=== PATIENT | female | born 2000 | race Caucasian/White ===

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

== ENCOUNTER → 2019-01-06 | Outpatient (CLI) | payer MEDICAID ==
--- NOTE | 2019-01-06 12:37 | Diagnostic Imaging Report ---
INDICATION: Followup heart. TECHNIQUE: Multiple real-time grayscale images were obtained over the gravid uterus. COMPARISON: 12/02/2018. FINDINGS: There is a single live fetus in a cephalic presentation. heart rate was recorded at 156 beats per minute. Placenta is anterior. Amniotic fluid volume is normal. There continues to be somewhat limited evaluation of the four-chamber heart on this study. No other abnormalities are identified. IMPRESSION: Continued limited four-chamber heart view. Continued additional followup is recommended. Dictated by: Dictated on workstation # [id number]
== END ==
LOC: RAD 09:36
PROVIDERS: ATTEND Family Medicine
DX: Z36.89 Encounter for other specified antenatal screening (principal); Z3A.00 Weeks of gestation of pregnancy not specified
CPT/HCPCS: 76816

== ENCOUNTER → 2019-01-24 | Outpatient (CLI) | payer MEDICAID ==
--- NOTE | 2019-01-24 15:44 | Diagnostic Imaging Report ---
INDICATION: Followup four-chamber heart view. TECHNIQUE: Multiple real-time grayscale images were obtained over the gravid uterus. COMPARISON: 01/06/2019. FINDINGS: There is a single live fetus in a cephalic presentation. heart rate was recorded at 140 beats per minute. Placenta is anterior. Amniotic fluid volume is normal. Four-chamber heart view is visualized today and appears unremarkable. IMPRESSION: Unremarkable limited obstetrical ultrasound. Four-chamber heart view was well visualized today. Dictated by: Dictated on workstation # [id number]
== END ==
LOC: RAD 10:56
PROVIDERS: ATTEND Family Medicine
DX: Z34.90 Encounter for supervision of normal pregnancy, unspecified, unspecified trimester (principal); Z3A.00 Weeks of gestation of pregnancy not specified
CPT/HCPCS: 76816

== ENCOUNTER 2019-03-13 22:36 | Emergency (ER) | payer MEDICAID ==
[~2019-03-13] VITALS: Ht 157.5 cm; Wt 92.6 kg
[2019-03-13] MEDS ORDERED: ACETAMINOPHEN 500 MG TAB (TYLENOL) PO STA (23:09)
[2019-03-13] MEDS ORDERED: NS IV 1000 ML 1,000 ML IV ONE (23:09)
[2019-03-13 23:22] LABS: BASOPHILS % (AUTO) 0 % (0-10); EOSINOPHILS # (AUTO) 0.1 10^3/uL (0.0-0.3); EOSINOPHILS % (AUTO) 1 % (0-10); HEMATOCRIT 36 % (35-52); HEMOGLOBIN 12.3 G/DL (11.5-16.0); LYMPHOCYTES # (AUTO) 2.7 X 10^3 (1.0-4.0); LYMPHOCYTES % (AUTO) 18 % (12-44); MEAN CORPUSCULAR HEMOGLOBIN 29 PG (25-34); MEAN CORPUSCULAR HGB CONC 34 G/DL (32-36); MEAN CORPUSCULAR VOLUME 85 FL (80-99); MEAN PLATELET VOLUME 11.5 FL (7.4-10.4); MONOCYTES # (AUTO) 1.3 X 10^3 (0.0-1.0); MONOCYTES % (AUTO) 9 % (0-12); NEUTROPHILS # (AUTO) 10.7 X 10^3 (1.8-7.8); NEUTROPHILS % (AUTO) 73 % (42-75); PLATELET COUNT 168 10^3/uL (130-400); RED CELL DISTRIBUTION WIDTH 13.5 % (10.0-14.5); WHITE BLOOD COUNT 14.7 10^3/uL (4.3-11.0)
--- NOTE | 2019-03-13 23:28 | ED Abdominal Pain ---
General Chief Complaint: Abdominal/GI Problems Stated Complaint: ABD/BACK/CHEST PAIN Nursing Triage Note: pt states sudden onset of upper abd pain, bilat lower back pain and chest pain with intermittent soa. pt is 33 weeks and has had a known gb stone at 23 weeks. pt denies burning or pain with urination. pt denies vaginal discharge and vision changes. pt is Source of Information: Patient Exam Limitations: No Limitations History of Present Illness Date Seen by Provider: Mar 13, 2019 Time Seen by Provider: 23:01 Initial Comments Here with report of right upper quadrant pain that lasted for a few hours and started at hour or 2 after eating a ham and she sounded much. Does have known gallstones. She is 33 weeks . She was short of breath with the pain. This is ultimately what caused her to come to the emergency department. Overall her pain is much improved currently without any therapy other than time. Timing/Duration: 1-3 Hours Severity/Quality: Moderate, Aching Location: RUQ Radiation: Back Activities at Onset: Rest Modifying Factors: Worsens With Eating Associated Symptoms: Back Pain; No Chest Pain, No Fever/Chills, No Nausea/Vomiting; Shortness of Air; No Weakness Allergies and Home Medications Allergies Coded Allergies: amoxicillin (Unverified Allergy, Mild, RASH, 03/03/16) Penicillins (Verified Allergy, Unknown, unknown, 11/26/18) Home Medications Albuterol Sulfate 1 Puff Puff, 2 PUFF IH Q4H PRN for SHORTNESS OF BREATH 1 PUFF = 90 MCG Prescribed by: DANILO CARL on 08/18/17 0914 Patient Home Medication List Home Medication List Reviewed: Yes Review of Systems Review of Systems Constitutional: see HPI; No chills, No fever Respiratory: See HPI Cardiovascular: See HPI Gastrointestinal: Denies Diarrhea, Denies Nausea, Denies Vomiting Genitourinary: No Symptoms Reported Musculoskeletal: see HPI Past Fpttdxw-Cqoize-Jetyfi Hx Past Med/Social Hx: Reviewed Nursing Past Med/Soc Hx Patient Social History Alcohol Use: Denies Use Recreational Drug Use: No Smoking Status: Never a Smoker Recent Foreign Travel: No Contact w/Someone Who Travel: No Recent Hopitalizations: No Ebola Symptoms: Denies Symptoms Listed Physical Abuse: No Sexual Abuse: No Mistreated: No Fear: No Immunizations Up To Date Tetanus Booster (TDap): Less than 5yrs PED Vaccines UTD: Yes Seasonal Allergies Seasonal Allergies: No Past Medical History Surgeries: Yes (DENTAL ) Appendectomy Respiratory: No Cardiac: No Neurological: No Expected Date of Delivery: May 02, 2019 Hx : 1 Reproductive Disorders: Yes (? PCOS ?) Female Reproductive Disorders: Ovarian Cyst Genitourinary: Yes UTI-Chronic Gastrointestinal: No Musculoskeletal: No Endocrine: Yes (HYPERGLYCEMIC SINCE 1ST GRADE ON OCCASION --DOES NOT TAKE MEDICINE) Cancer: No Psychosocial: No Integumentary: No Blood Disorders: No Family Medical History Reviewed Nursing Family Hx No Pertinent Family Hx Physical Exam Vital Signs Vital Signs - First Documented 03/13/19 22:54 Temp 97.8 Pulse 98 Resp 18 B/P (MAP) 127/79 Pulse Ox 99 Capillary Refill : Height/Weight/BMI Height: 5'2.00" Weight: 204lbs. 4.0oz. 92.450285wz; 35.15 BMI Method:Stated General Appearance: WD/WN, no apparent distress Neck: full range of motion, supple Respiratory: lungs clear, normal breath sounds Cardiovascular: regular rate, rhythm, no murmur Gastrointestinal: non tender, soft, other (mild but minimal right upper quadrant abdominal pain. [place] uterus above the umbilicus) Extremities: non-tender, normal inspection, no pedal edema Back: normal inspection, no CVA tenderness, no vertebral tenderness Neurologic/Psychiatric: alert, oriented x 3 Skin: normal color, warm/dry Progress/Results/Core Measures Results/Orders Lab Results Laboratory Tests Test 03/13/19 23:00 Range/Units White Blood Count 14.7 H 4.3-11.0 10^3/uL Red Blood Count 4.26 L 4.35-5.85 10^6/uL Hemoglobin 12.3 11.5-16.0 G/DL Hematocrit 36 35-52 % Mean Corpuscular Volume 85 80-99 FL Mean Corpuscular Hemoglobin 29 25-34 PG Mean Corpuscular Hemoglobin Concent 34 32-36 G/DL Red Cell Distribution Width 13.5 10.0-14.5 % Platelet Count 168 130-400 10^3/uL Mean Platelet Volume 11.5 H 7.4-10.4 FL Neutrophils (%) (Auto) 73 42-75 % Lymphocytes (%) (Auto) 18 12-44 % Monocytes (%) (Auto) 9 0-12 % Eosinophils (%) (Auto) 1 0-10 % Basophils (%) (Auto) 0 0-10 % Neutrophils # (Auto) 10.7 H 1.8-7.8 X 10^3 Lymphocytes # (Auto) 2.7 1.0-4.0 X 10^3 Monocytes # (Auto) 1.3 H 0.0-1.0 X 10^3 Eosinophils # (Auto) 0.1 0.0-0.3 10^3/uL Basophils # (Auto) 0.0 0.0-0.1 10^3/uL Neutrophils % (Manual) 74 % Lymphocytes % (Manual) 19 % Monocytes % (Manual) 5 % Eosinophils % (Manual) 2 % Sodium Level 138 135-145 MMOL/L Potassium Level 3.5 L 3.6-5.0 MMOL/L Chloride Level 105 98-107 MMOL/L Carbon Dioxide Level 22 21-32 MMOL/L Anion Gap 11 5-14 MMOL/L Blood Urea Nitrogen 4 L 7-18 MG/DL Creatinine 0.58 L 0.60-1.30 MG/DL Estimat Glomerular Filtration Rate > 60 BUN/Creatinine Ratio 7 Glucose Level 87 70-105 MG/DL Calcium Level 9.2 8.5-10.1 MG/DL Corrected Calcium 9.7 8.5-10.1 MG/DL Total Bilirubin 0.4 0.1-1.0 MG/DL Aspartate Amino Transf (AST/SGOT) 33 5-34 U/L Alanine Aminotransferase (ALT/SGPT) 68 H 0-55 U/L Alkaline Phosphatase 254 H 40-136 U/L Total Protein 6.6 6.4-8.2 GM/DL Albumin 3.4 3.2-4.5 GM/DL My Orders Orders - CAMI GUY MD Cbc With Automated Diff (03/13/19 23:09) Comprehensive Metabolic Panel (03/13/19 23:09) Ed Iv/Invasive Line Start (03/13/19 23:09) Ns Iv 1000 Ml (Sodium Chloride 0.9%) (03/13/19 23:09) Acetaminophen Tablet (Tylenol Tablet) (03/13/19 23:09) Manual Differential (03/13/19 23:00) Ondansetron Injection (Zofran Injectio (03/14/19 00:00) Lidocaine 2% Viscous 15 Ml (Xylocaine Vi (03/14/19 00:00) Antacid Suspension (Mylanta Suspension (03/14/19 00:00) Ondansetron Injection (Zofran Injectio (03/13/19 23:44) Medications Given in ED Current Medications Medications Dose Ordered Sig/Apryl Route Start Time Stop Time Status Last Admin Dose Admin Al Hydrox/Mg Hydrox/Simethicone 30 ml ONCE ONCE PO 03/14/19 00:00 03/14/19 00:01 DC 03/14/19 00:09 30 ML Lidocaine HCl 15 ml ONCE ONCE PO 03/14/19 00:00 03/14/19 00:01 DC 03/14/19 00:10 15 ML Ondansetron HCl 4 mg ONCE ONCE IVP 03/14/19 00:00 03/14/19 00:01 DC 03/13/19 23:50 4 MG Sodium Chloride 1,000 ml @ 0 mls/hr Q0M ONCE IV 03/13/19 23:09 03/13/19 23:14 DC 03/13/19 23:21 999 MLS/HR Vital Signs/I&O 03/13/19 22:54 Temp 97.8 Pulse 98 Resp 18 B/P (MAP) 127/79 Pulse Ox 99 Progress Progress Note : Progress Note Seen and evaluated. IV, labs, normal saline 1 L bolus and acetaminophen 1 g by mouth. heart tones 138 by Doppler. Bedside ultrasound performed. Gallstone still noted. Patient did have episode of vomiting and Zofran 4 mg IV given. GI cocktail given. She had near complete relief of pain after the GI cocktail. This does seem to be more reflux related and she has admitted that she has to drink milk all the time to get her stomach acid down. We did discuss potentially Pepcid/famotidine for her upset stomach but I have instructed her to follow-up with her doctor regarding that. I will send a copy of the chart to Dr. Camejo. Discharged home with return precautions. Patient verbalize understanding instructions and agreement with plan. Departure Impression Primary Impression: Epigastric abdominal pain Additional Impression: Cholelithiasis Disposition: 01 HOME, SELF-CARE Condition: Improved Departure-Patient Inst. Decision time for Depature: 00:20 Referrals: RODRIGUEZ CAMEJO MD (PCP/Family) Primary Care Physician Patient Instructions: Dyspepsia (DC), Gallstones (DC) Add. Discharge Instructions: All discharge instructions reviewed with patient and/or family. Voiced understanding. You may take Pepcid or the generic famotidine 20 mg daily as needed for stomach upset. Discussed this with your doctor. Call him in the morning. Return for worse pain, persistent vomiting, weakness, breathing problems or other concerns as needed. You still have a gallstone noted on bedside exam and this needs to be further evaluated. You may discussed this with your doctor as well. Copy Copies To 1: RODRIGUEZ CAMEJO MD, TIMOTHY D MD Mar 13, 2019 23:28
[2019-03-13 23:35] LABS: ALANINE AMINOTRANSFERASE 68 U/L (0-55); ALBUMIN 3.4 GM/DL (3.2-4.5); ALKALINE PHOSPHATASE 254 U/L (40-136); BILIRUBIN,TOTAL 0.4 MG/DL (0.1-1.0); BUN/CREATININE RATIO 7; CALCIUM 9.2 MG/DL (8.5-10.1); CARBON DIOXIDE 22 MMOL/L (21-32); CHLORIDE 105 MMOL/L (98-107); CREATININE SERUM 0.58 MG/DL (0.60-1.30); GFR ESTIMATED > 60; GLUCOSE 87 MG/DL (70-105); POTASSIUM 3.5 MMOL/L (3.6-5.0); SODIUM 138 MMOL/L (135-145); TOTAL PROTEIN 6.6 GM/DL (6.4-8.2)
[2019-03-13] MEDS ORDERED: ONDANSETRON 4 MG/2 ML (SDV) Z0FRAN ONE (23:44)
[2019-03-13 23:49] LABS: EOSINOPHILS % (MANUAL) 2 %; LYMPHOCYTES % (MANUAL) 19 %; MONOCYTES % (MANUAL) 5 %; NEUTROPHILS % (MANUAL) 74 %
[2019-03-14] MEDS ORDERED: ANTACID SUSP 30 ML UDC (MYLANTA) PO ONE
[2019-03-14] MEDS ORDERED: LIDOCAINE 2% VISCOUS 15 ML UDC PO ONE
[2019-03-14] MEDS ORDERED: ONDANSETRON 4 MG/2 ML (SDV) Z0FRAN IVP ONE
== END 2019-03-14 00:27 | disposition home or self-care (01) ==
LOC: ER 22:36 → EDUNIT# 22:36 → ER 03-14 00:27
DX: O99.613 Diseases of the digestive system complicating pregnancy, third trimester (principal); K80.20 Calculus of gallbladder without cholecystitis without obstruction; Z90.49 Acquired absence of other specified parts of digestive tract; Z88.1 Allergy status to other antibiotic agents; Z88.0 Allergy status to penicillin; Z87.440 Personal history of urinary (tract) infections; Z3A.33 33 weeks gestation of pregnancy
CPT/HCPCS: 36415; 80053; 85007; 85027; 96361; 96374

== ENCOUNTER → 2019-03-14 | Outpatient (CLI) | payer MEDICAID ==
--- NOTE | 2019-03-14 10:49 | Diagnostic Imaging Report ---
INDICATION: Severe right upper quadrant pain. 33 weeks . TECHNIQUE: Multiple grayscale sonographic images were obtained of the right upper quadrant of the abdomen. CORRELATION STUDY: None. FINDINGS: LIVER: There is uniform echotexture within the visualized portions of the liver. The liver length is 16.1 cm. GALLBLADDER: There is presence of multiple small shadowing gallstones. No significant gallbladder wall thickening. COMMON BILE DUCT: Mildly dilated at 8 mm. PANCREAS: The visualized portions appear unremarkable. RIGHT KIDNEY: Measures 10.9 x 4.8 x 5.6 cm. The right kidney is partly obscured. No overt hydronephrosis. AORTA/IVC: Not well visualized. OTHER: None. IMPRESSION: Cholelithiasis with multiple small gallstones. No definitive gallbladder wall thickening. There is, however, dilatation of the common bile duct and the possibility of underlying choledocholithiasis is not excluded. Correlation with laboratory evaluation is recommended. Dictated by: Dictated on workstation # [id number]
== END ==
LOC: RAD 09:57
PROVIDERS: ATTEND Family Medicine
DX: K80.20 Calculus of gallbladder without cholecystitis without obstruction (principal); K83.8 Other specified diseases of biliary tract
CPT/HCPCS: 76705

== ENCOUNTER 2019-04-17 17:45 | Outpatient (CLI) | payer MEDICAID ==
[~2019-04-17] VITALS: Ht 160 cm; Wt 99.5 kg
--- NOTE | 2019-04-17 17:34 | NUR ---
HERON GARAY presented to unit from home, accompanied by family, with c/o CONTRACTIONS. HERON GARAY weighed, gowned, voided, and to bed. EFHM and TOCO applied, VS taken. HERON GARAY oriented to bed controls, call light, TV, heat, and A/C controls.
[2019-04-17 17:44] VITALS: BP 111/71
--- NOTE | 2019-04-17 18:03 | NUR ---
SVE 1 cm external tunneling to closed internal. Thick and firm.
[2019-04-17 18:20] LABS: BILIRUBIN,URINE NEGATIVE (NEGATIVE); CLARITY,URINE CLEAR; COLOR,URINE YELLOW; GLUCOSE, URINE (UA) NEGATIVE (NEGATIVE); KETONES,URINE 2+ (NEGATIVE); LEUKOCYTE ESTERASE ,URINE NEGATIVE (NEGATIVE); NITRITE,URINE POSITIVE (NEGATIVE); PH,URINE 6 (5-9); PROTEIN,URINE NEGATIVE (NEGATIVE); UROBILINOGEN,URINE 1 MG/DL (NORMAL)
[2019-04-17 18:30] LABS: BACTERIA,URINE LARGE /HPF; RBC,URINE 0-2 /HPF
--- NOTE | 2019-04-17 18:35 | NUR ---
Dr. Mendenhall on unit and updated on patient's arrival, exam, and status. New orders received.
--- NOTE | 2019-04-17 18:36 | NUR ---
Reactive FHR tracing with moderate variability noted. FHR baseline 140 bpm with accels noted up to 160's, No decels noted. No contractions noted. EFM/TOCO removed.
--- NOTE | 2019-04-17 18:44 | NUR ---
Discharge instructions reviewed with patient both written and verbally. Patient verbalizes understanding and denies any current questions or concerns at this time.
--- NOTE | 2019-04-17 18:47 | NUR ---
Patient discharged at this time and ambulated from the unit accompanied by family. No signs or symptoms of distress noted.
== END 2019-04-17 18:47 | disposition home or self-care (01) ==
LOC: LDRP 17:45 → WSo 17:45
PROVIDERS: ATTEND Family Medicine
DX: O99.89 Other specified diseases and conditions complicating pregnancy, childbirth and the puerperium (principal); R10.9 Unspecified abdominal pain; Z3A.37 37 weeks gestation of pregnancy
CPT/HCPCS: 81000; 87088; 99213

== ENCOUNTER 2019-04-25 19:00 | Inpatient (IN) | payer MEDICAID ==
[~2019-04-25] VITALS: Ht 160 cm; Wt 100.4 kg
--- NOTE | 2019-04-25 19:00 | NUR ---
HERON GARAY presented to unit from HOME, accompanied by Family, with c/o INDUCTION. HERON GARAY weighed, gowned, voided, and to bed. EFHM and TOCO applied, VS taken. HERON GARAY oriented to bed controls, call light, TV, heat, and A/C controls.
[2019-04-25] MEDS ORDERED: D5 LR IV SOLUTION 1,000 ML IV ONE (19:02)
[2019-04-25] MEDS: D5 LR IV SOLUTION 1,000 ML IV SCH (19:40)
[2019-04-25 20:00] VITALS: BP 136/79
[2019-04-25] MEDS ORDERED: MISOPROSTOL 100 MCG (CYTOTEC) TAB ONE (20:03)
[2019-04-25 21:00] VITALS: BP 123/73
[2019-04-25 22:00] VITALS: BP 128/61
[2019-04-25] MEDS ORDERED: ZOLPIDEM 5 MG (AMBIEN) TAB ONE (22:50)
[2019-04-25 23:00] VITALS: BP 127/64
[2019-04-25] MEDS ORDERED: LACTATED RINGERS 1,000 ML IV SCH (23:03)
[2019-04-25 23:11] LABS: BASOPHILS % (AUTO) 0 % (0-10); EOSINOPHILS # (AUTO) 0.1 10^3/uL (0.0-0.3); EOSINOPHILS % (AUTO) 1 % (0-10); HEMATOCRIT 36 % (35-52); HEMOGLOBIN 11.8 G/DL (11.5-16.0); LYMPHOCYTES # (AUTO) 2.3 X 10^3 (1.0-4.0); LYMPHOCYTES % (AUTO) 16 % (12-44); MEAN CORPUSCULAR HEMOGLOBIN 28 PG (25-34); MEAN CORPUSCULAR HGB CONC 33 G/DL (32-36); MEAN CORPUSCULAR VOLUME 84 FL (80-99); MEAN PLATELET VOLUME 12.4 FL (7.4-10.4); MONOCYTES # (AUTO) 1.2 X 10^3 (0.0-1.0); MONOCYTES % (AUTO) 8 % (0-12); NEUTROPHILS # (AUTO) 11.3 X 10^3 (1.8-7.8); NEUTROPHILS % (AUTO) 76 % (42-75); PLATELET COUNT 184 10^3/uL (130-400); RED CELL DISTRIBUTION WIDTH 14.5 % (10.0-14.5); WHITE BLOOD COUNT 14.8 10^3/uL (4.3-11.0)
[2019-04-25] MEDS ORDERED: MINERAL OIL CONCENTRATE 99.9% 15 ML UDC TOP PRN (23:15)
[2019-04-25] MEDS ORDERED: BUTORPHANOL INJ 2 MG/ML (STADOL) VIAL IV PRN (23:15)
[2019-04-25] MEDS ORDERED: ZOLPIDEM 5 MG (AMBIEN) TAB PO ONE (23:15)
[2019-04-25] MEDS ORDERED: MISOPROSTOL 100 MCG (CYTOTEC) TAB PO ONE (23:15)
[2019-04-25] MEDS ORDERED: TERBUTALINE INJ 1 MG/ML (BRETHINE) AMP SC PRN (23:15)
[2019-04-26] VITALS (55 sets, daily range): BP systolic 97–154; BP diastolic 50–92
[2019-04-26] MEDS ORDERED: MISOPROSTOL 100 MCG (CYTOTEC) TAB ONE (00:23)
[2019-04-26] MEDS: MISOPROSTOL 100 MCG (CYTOTEC) TAB PO SCH ×3 (00:30→15:10)
[2019-04-26] MEDS ORDERED: D5 LR IV SOLUTION 1,000 ML IV ONE (02:45)
[2019-04-26] MEDS: D5 LR IV SOLUTION 1,000 ML IV SCH ×2 (02:46→11:00)
[2019-04-26] MEDS ORDERED: BUTORPHANOL INJ 2 MG/ML (STADOL) VIAL ONE (03:35)
[2019-04-26] MEDS ORDERED: CATHETER FLUSH 10 ML SYR IV SCH ×2 (06:00→22:00)
[2019-04-26] MEDS ORDERED: OXYTOCIN/NORMAL SALINE 500 ML IV SCH ×2 (07:17→16:36)
--- NOTE | 2019-04-26 07:21 | History & Physical-OB ---
OB - Chief Complaint & HPI Date/Time Date of Admission: Date of Admission: Apr 25, 2019 at 19:00 Date seen by a Provider: Apr 26, 2019 Time Seen by a Provider: 07:05 Chief Complaint/History OB-Reason for Admission/Chief: Induction of Labor Hx : 1 Hx Para: 0 Expected Date of Delivery: May 02, 2019 Gestational Age in Weeks: 39 Gestational Age in Days: 1 Admission Nurse Assessment Rev: Yes History of Labs GBS negative Allergies and Home Medications Allergies Coded Allergies: amoxicillin (Unverified Allergy, Mild, RASH, 03/03/16) Penicillins (Verified Allergy, Unknown, unknown, 11/26/18) Home Medications No Active Prescriptions or Reported Meds Patient Home Medication List Home Medication List Reviewed: Yes OB - History Hx of Present Care: Yes Ultrasounds: Normal mid trimester US Obstetrical Complications: None Medical Complications: None Delivery History Hx Blood Disorders: No Patient Past Medical History no chronic medical problems Social History/Family History Alcohol Use: Denies Use Recreational Drug Use: No Immunizations Tetanus Booster (TDap): Less than 5yrs OB - Admission Exam Physical Exam Vitals: Vital Signs 04/25/19 04/26/19 21:00 06:00 Temp 97.5 Pulse 88 Resp 18 B/P (MAP) 126/69 (88) O2 Delivery Room Air HEENT: Moist Membranes Heart: Rhythm Normal Lungs: Clear Abdomen: Gravid Extremities: Normal Reflexes: Normal Cervical Dilatation: 1cm Effacement: 50% Station: -3 Membranes: Intact Heart Rate: 140's Accelerations: Accelerations Present Decelerations: No Decelerations Short Term Variability: Present Mcc Variability: Average (6-25) Contractions on Admission: 6-10 Minutes Apart Intensity: Mild Kathleen Scoring Tool (Modified) Dilation (cm): 1-2cm (1) Effacement (%): 31-51% (1) Descent/Station: -3 (0) Cervix Consistency: Medium(1) Cervix Position: Middle/Mid-Position (1) Kathleen Score: 4 Labs Laboratory Tests Test 04/25/19 19:40 Range/Units White Blood Count 14.8 H 4.3-11.0 10^3/uL Red Blood Count 4.27 L 4.35-5.85 10^6/uL Hemoglobin 11.8 11.5-16.0 G/DL Hematocrit 36 35-52 % Mean Corpuscular Volume 84 80-99 FL Mean Corpuscular Hemoglobin 28 25-34 PG Mean Corpuscular Hemoglobin Concent 33 32-36 G/DL Red Cell Distribution Width 14.5 10.0-14.5 % Platelet Count 184 130-400 10^3/uL Mean Platelet Volume 12.4 H 7.4-10.4 FL Neutrophils (%) (Auto) 76 H 42-75 % Lymphocytes (%) (Auto) 16 12-44 % Monocytes (%) (Auto) 8 0-12 % Eosinophils (%) (Auto) 1 0-10 % Basophils (%) (Auto) 0 0-10 % Neutrophils # (Auto) 11.3 H 1.8-7.8 X 10^3 Lymphocytes # (Auto) 2.3 1.0-4.0 X 10^3 Monocytes # (Auto) 1.2 H 0.0-1.0 X 10^3 Eosinophils # (Auto) 0.1 0.0-0.3 10^3/uL Basophils # (Auto) 0.0 0.0-0.1 10^3/uL OB - Assessment/Plan/Diagnosis Assessment Assessment: induction of labor (at 39w1d) Admission Dx 1. IUP at 39w Admission Status: Inpatient Order (span 2 midnights) Reason for Inpatient Admission: L&D Plan Plan: Induction Induction Method: per Misoprostol Protocol Other Plan -patient desires epidural -pitocin as necessary RODRIGUEZ CAMEJO MD Apr 26, 2019 07:21
[2019-04-26] MEDS ORDERED: SUFENTA 0.6MCG/ML BUPIVA 0.125 100 ML ONE (08:24)
[2019-04-26] MEDS ORDERED: fentaNYL INJECTION 100 MCG/2 ML AMP ONE (08:37)
[2019-04-26] MEDS ORDERED: BUPIVACAINE 0.25% 30 ML (SENSORCAINE) VIAL ONE (08:37)
[2019-04-26] MEDS ORDERED: LACTATED RINGERS 1,000 ML IV ONE (09:19)
[2019-04-26] MEDS ORDERED: NALOXONE 0.4 MG/ML 1 ML (NARCAN) VIAL IV PRN (09:30)
[2019-04-26] MEDS ORDERED: ONDANSETRON 4 MG/2 ML (SDV) Z0FRAN IV PRN (09:30)
[2019-04-26] MEDS ORDERED: EPIDURAL (SUFENTA 0.6MCG/ML BUPIVA 0.125%) 100 ML BAG EPI SCH ×2 (09:30→09:45)
[2019-04-26] MEDS ORDERED: CATHETER FLUSH 10 ML SYR IV PRN (09:30)
[2019-04-26] MEDS ORDERED: diphenhydrAMINE 50 MG/ML INJ (BENADRYL) IV PRN (09:30)
--- NOTE | 2019-04-26 16:03 | NUR ---
Spontaneous vaginal delivery of placenta with cord. pitocin increased to 999ml/hr. fundal massage by this rn ffu/2. perineum examined per dr magdaleno and noted right periurethral tear. repair started per dr magdaleno 1612 epidural infusion stopped 1615 pitocin to 125ml/hr as ordered. ffu/2 with lt rubra noted, no clots expressed 1630 ffu/2 with lt rubra noted, no clots expressed. 1645 ffu/0 lt-mod noted, no clots expressed. 1720 vss ffu/0 with lt rubra noted. 1800 ff1/u with lt rubra noted, no clots expressed. pericare, pad changed, underwear on.
--- NOTE | 2019-04-26 16:32 | NUR ---
Dr mendenhall called and notified of syeda unable to locate [address] Mendenhall stated he did not place any 4X4 in vagina. rn located 19 4x4. Addendum: 04/26/19 at 1728 by MARANDA ALONSO RN not located counted
--- NOTE | 2019-04-26 16:40 | OB Labor & Delivery Record ---
L&D History Date of Service Date of Service: Apr 26, 2019 History Expected Date of Delivery: May 02, 2019 Gestational Age in Weeks: 39 Hx : 1 Hx Para: 1 Complications Events: Routine care Operative Indications (Cesarea: N/A-Vaginal Delivery Intrapartal Events: None L&D Stage1 Stage One Onset of Labor - Date: Apr 26, 2019 Onset of Labor - Time: 07:05 Monitors and Tracing Monitor Mode: Internal Heart Rate: 135 Monitor Accelerations: Uniform Monitor Decelerations: Variable Station: -1 [employer] Chief Variability: Average (6-10) Short Term Variability: Present Presentation: Vertex Vital Signs VS - Last 72 Hours, by Label 04/25/19 04/25/19 04/25/19 04/25/19 20:00 21:00 22:00 23:00 Temp 98.7 97.5 Pulse 112 108 90 103 Resp 18 18 18 18 B/P (MAP) 136/79 (98) 123/73 (90) 128/61 (83) 127/64 (85) O2 Delivery Room Air Room Air Room Air Room Air 04/26/19 04/26/19 04/26/19 04/26/19 00:00 01:00 02:00 03:00 Pulse 92 103 92 85 Resp 18 18 18 18 B/P (MAP) 127/68 (87) 123/64 (83) 125/75 (92) 121/73 (89) O2 Delivery Room Air Room Air Room Air Room Air 04/26/19 04/26/19 04/26/19 04/26/19 04:00 05:00 06:00 07:00 Pulse 85 76 88 79 Resp 18 18 18 18 B/P (MAP) 121/74 (90) 114/62 (79) 126/69 (88) 112/59 (76) O2 Delivery Room Air Room Air Room Air Room Air 04/26/19 04/26/19 04/26/19 04/26/19 07:15 07:30 08:00 08:15 Temp 97.7 Pulse 86 100 Resp 18 18 B/P (MAP) 128/70 (89) 137/88 (104) O2 Delivery Room Air Room Air Room Air Room Air 04/26/19 04/26/19 04/26/19 04/26/19 08:30 09:00 09:05 09:10 Temp 97.6 Pulse 118 98 90 Resp 18 18 18 B/P (MAP) 154/89 (110) 146/64 (91) 135/84 (101) Pulse Ox 99 99 99 O2 Delivery Room Air Room Air Room Air Room Air 04/26/19 04/26/19 04/26/19 04/26/19 09:12 09:15 09:18 09:21 Pulse 90 114 100 97 Resp 18 18 18 18 B/P (MAP) 146/92 (110) 137/89 (105) 130/81 (97) 139/79 (99) Pulse Ox 99 98 98 98 O2 Delivery Room Air Room Air Room Air Room Air 04/26/19 04/26/19 04/26/19 04/26/19 09:24 09:27 09:30 09:33 Pulse 99 105 95 100 Resp 18 18 18 18 B/P (MAP) 138/78 (98) 131/76 (94) 131/79 (96) 139/82 (101) Pulse Ox 98 98 98 99 O2 Delivery Room Air Room Air Room Air Room Air 04/26/19 04/26/19 04/26/19 04/26/19 09:40 09:45 09:50 10:00 Pulse 94 97 80 90 Resp 18 18 18 18 B/P (MAP) 134/79 (97) 141/77 (98) 131/68 (89) 147/69 (95) Pulse Ox 99 99 98 98 O2 Delivery Room Air Room Air Room Air Room Air 04/26/19 04/26/19 04/26/19 04/26/19 10:05 10:15 10:20 10:25 Pulse 80 77 80 75 Resp 18 18 18 18 B/P (MAP) 111/65 (80) 117/69 (85) 104/57 (73) 112/60 (77) Pulse Ox 97 99 98 98 O2 Delivery Room Air Room Air Room Air Room Air 04/26/19 04/26/19 04/26/19 04/26/19 10:30 10:45 11:00 11:15 Pulse 72 88 73 Resp 18 18 18 B/P (MAP) 100/56 (71) 116/64 (81) Pulse Ox 98 98 98 O2 Delivery Room Air Room Air Room Air Room Air 04/26/19 04/26/19 04/26/19 04/26/19 11:30 11:45 12:00 12:15 Temp 98.5 Pulse 89 97 93 94 Resp 18 18 18 18 B/P (MAP) 104/51 (68) 98/54 (69) 101/50 (67) 107/53 (71) O2 Delivery Room Air Room Air Room Air Room Air 04/26/19 04/26/19 04/26/19 04/26/19 12:30 12:45 13:00 13:15 Pulse 93 98 Resp 18 18 B/P (MAP) 106/54 (71) 97/54 (68) O2 Delivery Room Air Room Air Room Air Room Air 04/26/19 04/26/19 04/26/19 04/26/19 13:30 13:45 14:00 14:15 Temp 98.0 Pulse 103 100 111 100 Resp 18 18 18 18 B/P (MAP) 121/55 (77) 109/57 (74) 112/68 (83) 120/66 (84) O2 Delivery Room Air Room Air Room Air Room Air 04/26/19 04/26/19 14:30 14:45 Pulse 93 100 Resp 18 18 B/P (MAP) 116/64 (81) 114/68 (83) O2 Delivery Room Air Room Air Signs of Distress by FHT Signs of Distress no Rupture of Membranes Spontaneous Ruture of Membrane: No Amniotic Membrane Rupture Time: 0705 Amniotic Membrane Fluid Desc.: Clear Induction/Anesthesia Epidural Cath Placement - Time: 0905 L&D Stage2 Stage Two Stage II Date: Apr 26, 2019 Stage II Time: 16:02 Monitors and Tracing Monitor Mode: Internal Heart Rate: 135 Monitor Accelerations: Uniform Monitor Decelerations: Early Senior Living Variability: Average (6-10) Short Term Variability: Present Position: Left Occiput Anterior Presentation: Vertex Signs of Distress by FHT Signs of Distress no Cord Descript/Complications Cord Vessel Description: 3 Vessels Delivery Type Delivery Method: Spontaneous Vaginal Anterior Shoulder: Left Episiotomy/Perineal Laceration Laceraction(s)/Extensions: Yes Episiotomy Description: Periurethral Extnsion/lac (Left) Sutures Used: Vicryl Condition of Infant Delivery 1 minute Comment: 7 5 minute Comment: 8 Condition of Condition of Infant: Living Exam: No Observed Abnormalities Resuscitation Resuscitation: N/A - Spontaneous Resp L&D Stage3 Stage Three Stage III Date: Apr 26, 2019 Stage III Time: 16:07 Pictocin Pitocin Administration mu/min: 20 Pitocin ml/hr: 20 Pitocin Administration Comment: 1315 pitocin increased Placenta Delivery Placenta Delivery: Spontaneous Delivery Summary Summary Estimated blood loss (mL): 200 Condition of Delivery Examined: Cervix Examined Post Hemorrhage: No Intervention Required none RODRIGUEZ CAMEJO MD Apr 26, 2019 16:40
[2019-04-26] MEDS ORDERED: BENZOCAINE/MENTHOL (DERMOPLAST) 56 ML CAN TP PRN (16:45)
[2019-04-26] MEDS ORDERED: MEASLES,MUMPS,RUBELLA 1 EA INJ SQ ONE (16:45)
[2019-04-26] MEDS ORDERED: WITCH HAZEL(TUCKS) 40 EA JAR TOP PRN (16:45)
[2019-04-26] MEDS ORDERED: TETANUS,DIPTH,PERTUSS P/F (BOOSTRIX) 0.5 ML VIAL IM ONE (16:45)
[2019-04-26] MEDS: IBUPROFEN 600 MG (MOTRIN) TAB PO SCH (18:26)
[2019-04-26] MEDS: ACETAMINOPHEN 500 MG TAB (TYLENOL) PO SCH (18:26)
--- NOTE | 2019-04-26 18:45 | NUR ---
pt transferred to room 309 via wheelchair. to bathroom, void and pericare and assisted back to bed due to right leg still heavy from epidural. info packet discussed, call light with in reach. family members at bedside. pt denies further needs at this time.
[2019-04-26] MEDS: DOCUSATE SODIUM 100 MG (COLACE) CAP PO SCH (21:22)
[2019-04-26] MEDS ORDERED: ACET-2267 PO (21:58)
[2019-04-27 00:05] VITALS: BP 106/55
[2019-04-27] MEDS: IBUPROFEN 600 MG (MOTRIN) TAB PO SCH ×3 (00:05→12:36)
[2019-04-27 03:36] VITALS: BP 106/69
[2019-04-27] MEDS: ACETAMINOPHEN 500 MG TAB (TYLENOL) PO SCH ×3 (03:36→16:55)
[2019-04-27 06:42] LABS: BASOPHILS % (AUTO) 0 % (0-10); EOSINOPHILS # (AUTO) 0.1 10^3/uL (0.0-0.3); EOSINOPHILS % (AUTO) 1 % (0-10); HEMATOCRIT 35 % (35-52); HEMOGLOBIN 11.4 G/DL (11.5-16.0); LYMPHOCYTES # (AUTO) 2.5 X 10^3 (1.0-4.0); LYMPHOCYTES % (AUTO) 15 % (12-44); MEAN CORPUSCULAR HEMOGLOBIN 28 PG (25-34); MEAN CORPUSCULAR HGB CONC 33 G/DL (32-36); MEAN CORPUSCULAR VOLUME 85 FL (80-99); MEAN PLATELET VOLUME 12.3 FL (7.4-10.4); MONOCYTES # (AUTO) 1.5 X 10^3 (0.0-1.0); MONOCYTES % (AUTO) 10 % (0-12); NEUTROPHILS # (AUTO) 11.9 X 10^3 (1.8-7.8); NEUTROPHILS % (AUTO) 74 % (42-75); PLATELET COUNT 154 10^3/uL (130-400); RED CELL DISTRIBUTION WIDTH 14.4 % (10.0-14.5)
--- NOTE | 2019-04-27 07:15 | NUR ---
Dr Mendenhall here to see pt. Plan to D/C after 24hrs.
[2019-04-27 09:34] VITALS: BP 118/71
[2019-04-27] MEDS: DOCUSATE SODIUM 100 MG (COLACE) CAP PO SCH (09:36)
[2019-04-27 12:34] VITALS: BP 119/73
--- NOTE | 2019-04-27 13:07 | Anesthesia-Regional Post-Op ---
Regional Patient Condition Mental Status: Alert, Oriented x3 Circulation: Same as Pre-Op Headache: Absent Sensation: Full Recovery Motor Block: Absent Post Op Complications Complications None Follow Up Care/Instructions Patient Instructions None needed. Anesthesia/Patient Condition Patient is doing well, no complaints, stable vital signs, no apparent adverse anesthesia problems. No complications reported per nursing. D/C home per [facility] Criteria: Yes MUKESH MEYERS CRNA Apr 27, 2019 13:07
[2019-04-27 14:45] VITALS: BP 112/79
[2019-04-27] MEDS ORDERED: IBUP-844 PO (17:51)
--- NOTE | 2019-04-27 17:52 | Discharge Inst-Women's Service ---
Discharge Inst-Women's Serv Depart Medication/Instructions New, Converted or Re-Newed RX: Transmitted to Pharmacy ([facility]) Consults/Follow Up Additional Follow Up: Yes (with Dr. Camejo in 6 weeks) Activity Activity: Activity as Tolerated Driving Instructions: You May Drive Nothing Inside Vagina: No [place] (or 6 weeks) Diet Discharge Diet: Regular Diet Return to The Hospital For: as below Symptoms to Report to : Pain Increased, Fever Over 101 Degrees F, Vaginal Discharge Foul For Any Problems or Questions: Contact Your Physician RODRIGUEZ CAMEJO MD Apr 27, 2019 17:52
--- NOTE | 2019-04-27 17:56 | Discharge Summary ---
Diagnosis/Chief Complaint Date of Admission Apr 25, 2019 at 19:00 Date of Discharge April 27, 2019 Discharge Date: Apr 27, 2019 Discharge Time: 18:00 Admission Diagnosis Admission Diagnosis 1. Intrauterine at 39 weeks Discharge Diagnosis 1. Intrauterine at 39 weeks Reason Hospital Visit 18-year-old 1 now term 1female who initially presented to labor and delivery during the evening of April 25 for induction of labor at 39 weeks 1 day gestation. She had care that was essentially unremarkable. She did have an EDC of May 02, 2019. Discharge Summary-OBS Procedures 1. Epidural per anesthesia 2 Spontaneous vaginal delivery 3. Repair of right-sided periurethral tear Discharge Physical Examination Allergies: Coded Allergies: amoxicillin (Unverified Allergy, Mild, RASH, 03/03/16) Penicillins (Verified Allergy, Unknown, unknown, 11/26/18) Vitals & I&Os Vital Signs Date Time Temp Pulse Resp B/P (MAP) Pulse Ox O2 Delivery O2 Flow Rate FiO2 04/27/19 14:45 84 18 112/79 (90) 99 Room Air 04/27/19 12:34 97.9 General Appearance: No Acute Distress Respiratory: Clear to Auscultation, Normal Air Movement Cardiovascular: Regular Rate Abdominal: Soft (with uterus firm) Skin: No Rashes Neuro: Normal Speech Hospital Course Was the Problem List Reviewed?: Yes Patient was admitted on Aprilor induction of labor with Cytotec. She underwent Cytotec 100 g followed by 50 g every 4 hours until contraction pattern. Her hemoglobin upon admission was 11.8. Patient developed a contraction pattern overnight and was noted to be dilated to 2 cm in the morning at 07 100 on April 26, 2019. scalp electrode was placed with clear fluid noted. She required Pitocin augmentation. She did request epidural anesthesia placed without difficulty. Ultimately she delivered a term viable male at 1602 on April 26, 2019. Apgars were 7 at 1 minute and 9 at 5 minutes. Following delivery patient underwent routine care orders. She had no complications during the remainder of hospital stay. Her hemoglobin on morning of April 27 was 11.4. She was tolerating regular diet and felt ready for dismissal to home during the afternoon of April 27, 2019. All questions answered. Discharge Instructions to patient/family Please see electronic discharge instructions given to patient. Discharge Medications Reviewed and agree with Discharge Medication list on patient's Discharge Instr uction sheet Clinical Quality Measures DVT/VTE Risk/Contraindication: Risk Factor Score Per Nursin RFS Level Per Nursing on Admit: 1=Low/No VTE PPX RODRIGUEZ CAMEJO MD Apr 27, 2019 17:56
[2019-04-27 19:40] VITALS: BP 117/81
--- NOTE | 2019-04-27 19:45 | NUR ---
Patient provided and instructed on discharge education handouts. Instructed patient to be sure she calls Dr Mendenhall's office in AM to schedule follow up appointment. Patient verbalized understanding of all teaching.
--- NOTE | 2019-04-27 20:00 | NUR ---
Patient, s/o and escorted off of unit to private vehicle at this time.
== END 2019-04-27 20:00 | disposition home or self-care (01) | DRG 807 ==
LOC: LDRP 19:00
PROVIDERS: ADMIT Family Medicine; ATTEND Family Medicine
PROC: 3E0DXGC Introduction of Other Therapeutic Substance into Mouth and Pharynx, External Approach (ICD-10-PCS; 2019-04-25)
PROC: 10E0XZZ Delivery of Products of Conception, External Approach (ICD-10-PCS; principal; 2019-04-26)
PROC: 0UQMXZZ Repair Vulva, External Approach (ICD-10-PCS; 2019-04-26)
DX: O71.82 Other specified trauma to perineum and vulva (principal); Z37.0 Single live birth; Z3A.39 39 weeks gestation of pregnancy; Z23 Encounter for immunization
CPT/HCPCS: 36415; 85025; 86850; 86900; 86901; 90715

== ENCOUNTER → 2020-07-19 | Outpatient (CLI) | payer MEDICAID ==
[~2020-07-19] MED LIST changes: +ACET-2267 PO; +IBUP-844 PO
--- NOTE | 2020-07-19 15:40 | Diagnostic Imaging Report ---
INDICATION: Anatomic survey. TECHNIQUE: Multiple real-time grayscale images were obtained over the gravid uterus. COMPARISON: 05/13/2020. FINDINGS: There is a single live intrauterine gestation in breech presentation. The placenta is anterior, with the tip terminating at the internal os, consistent with partial previa. The cervix is normal in size measuring 4.2 cm with no funneling or endocervical fluid seen. The stomach is seen. The lateral ventricles, cerebellum, and cisterna magna are seen. The upper and lower spine is seen. A four-chamber heart is seen. heart rate measures 163 BPM. The kidneys are seen. The bladder is seen. The cord insertion is seen. A three-vessel cord is demonstrated with two uterine arteries but not well seen in grayscale. The amniotic fluid index measures 13.7 cm. Biometrical measurements are as follows: Biparietal 4.50 cm, age 19 weeks 5 days. Head circumference 16.78 cm, age 19 weeks 4 days. Abdominal circumference 14.76 cm, age 20 weeks 1 days. Femur length 2.75 cm, age 18 weeks 3 days. Sonographic estimate age: 19 weeks 4 days. Sonographic estimated date of delivery: 12/09/2020. Estimated Weight: 285 gm (+/- 42 gm). LMP percentile: 97%. heart rate: 163 beats per minute. number: 1 of 1. IMPRESSION: 1. Single live intrauterine gestation measuring at 19 weeks and 4 days which is within range of the clinical dates. 2. Partial placenta previa, recommend continued follow-up. 3. Breech presentation. 4. No anatomic abnormality is seen. Dictated by: Dictated on workstation # [id number]
== END ==
LOC: RAD 11:40
PROVIDERS: ATTEND Family Medicine
DX: Z34.92 Encounter for supervision of normal pregnancy, unspecified, second trimester (principal); Z3A.19 19 weeks gestation of pregnancy
CPT/HCPCS: 76805

== ENCOUNTER → 2020-10-01 | Outpatient (CLI) | payer MEDICAID ==
--- NOTE | 2020-10-01 13:55 | Diagnostic Imaging Report ---
INDICATION: Partial previa. TECHNIQUE: Multiple real-time grayscale images were obtained over the gravid uterus. COMPARISON: None 07/19/2020 FINDINGS: The previous ultrasound exam of 07/19/2020 noted a single live fetus of approximately 19 weeks 4 days gestation. There was a partial anterior placenta previa. On this exam, the fetus is again visualized. The fetus is in breech presentation. heart motion was noted and a rate of 144 BPM was recorded. In the interval since the prior exam, the placenta has migrated away from the os. The tip of the placenta now lies 1.6 cm from the cervical os. There were no obvious abnormalities identified. The growth parameters were not obtained. The amniotic fluid index has increased since the prior exam and is now estimated to be 22.46 as opposed to 13.7 cm previously (normal 8-22 cm). The reason for the borderline polyhydramnios is not certain. Biometrical measurements are as follows: Biparietal cm, age weeks days. Head circumference cm, age weeks days. Abdominal circumference cm, age weeks days. Femur length cm, age weeks days. Sonographic estimate age: weeks days. Sonographic estimated date of delivery: . Estimated Weight: gm (+/- gm). LMP percentile: %. heart rate: beats per minute. number: of . IMPRESSION: 1. There is a single live fetus in breech presentation. 2. The anterior placenta previa seen previously is no longer evident. The placenta has migrated and the tip now lies approximately 1.6 cm from the cervix. 3. Borderline polyhydramnios has developed in the interval since the prior exam. The reason for the slightly increased amniotic fluid volume is not certain. A short-term (2-4 week) follow-up exam would be recommended for further study. Dictated by: Dictated on workstation # [id number]
== END ==
LOC: RAD 12:30
PROVIDERS: ATTEND Family Medicine
DX: O40.2XX0 Polyhydramnios, second trimester, not applicable or unspecified (principal); Z3A.19 19 weeks gestation of pregnancy
CPT/HCPCS: 76816

== ENCOUNTER → 2020-10-31 | Outpatient (CLI) | payer MEDICAID ==
--- NOTE | 2020-10-31 14:08 | Diagnostic Imaging Report ---
INDICATION: Polyhydramnios TECHNIQUE: Multiple real-time grayscale images were obtained over the gravid uterus. COMPARISON: 10/01/2020 and 07/19/2020. FINDINGS: The previous exam of 10/01/2020 noted a single live fetus in breech presentation. On this study, the fetus is again visualized. The fetus is now in cephalic presentation. There are no abnormality identified although a complete survey was not performed. heart motion was noted and a rate of 149 BPM was reported. The prior exam noted borderline polyhydramnios with an amniotic fluid volume index of 22.46. On this exam, the amniotic fluid index is 23.84. The placenta is anterior and there is no previa. The growth parameters were not obtained for this study. IMPRESSION: 1. There is a single live fetus in cephalic presentation. 2. The amniotic fluid index has increased slightly since the prior exam and is now estimated to be 23.84 (normal 8 to 22 cm). The reason for the mild polyhydramnios is not certain. 3. There is no evidence for a previa. Dictated by: Dictated on workstation # [id number]
== END ==
LOC: RAD 10:45
PROVIDERS: ATTEND Family Medicine
DX: O40.9XX0 Polyhydramnios, unspecified trimester, not applicable or unspecified (principal); Z3A.00 Weeks of gestation of pregnancy not specified
CPT/HCPCS: 76816

== ENCOUNTER 2020-11-10 21:50 | Outpatient (CLI) | payer MEDICAID ==
[~2020-11-10] VITALS: Ht 157.5 cm; Wt 103.3 kg
[2020-11-10 22:02] VITALS: BP 130/68
[2020-11-10 22:06] VITALS: BP_SYST 125; BP_SYST 130; BP_DIAS 65; BP_DIAS 68
[2020-11-10 22:17] LABS: BILIRUBIN,URINE NEGATIVE (NEGATIVE); CLARITY,URINE CLOUDY; COLOR,URINE RED; GLUCOSE, URINE (UA) NEGATIVE (NEGATIVE); KETONES,URINE NEGATIVE (NEGATIVE); LEUKOCYTE ESTERASE ,URINE TRACE (NEGATIVE); NITRITE,URINE NEGATIVE (NEGATIVE); PROTEIN,URINE 1+ (NEGATIVE)
[2020-11-10 22:30] LABS: RBC,URINE 25-50 /HPF
[2020-11-10 22:31] LABS: BACTERIA,URINE TRACE /HPF
[2020-11-10 22:52] VITALS: BP 105/56
--- NOTE | 2020-11-11 08:24 | Physician Query-Final Dx ---
JF LACY 11/11/20 0824: Clinic Account Progress/Dx Physician Query: Please give diagnosis Please include # weeks gestation Date of Service Nov 10, 2020 at 21:50 RODRIGUEZ CAMEJO MD 11/12/20 0652: Clinic Account Progress/Dx DIAGNOSIS: Diagnosis 1. Vaginal spotting of blood 2. IUP at 32 weeks. JF LACY Nov 11, 2020 08:24 RODRIGUEZ CAMEJO MD Nov 12, 2020 06:52
== END 2020-11-10 23:06 | disposition home or self-care (01) ==
LOC: WSo 21:50 → LDRP 21:51 → WSo 23:06
PROVIDERS: ATTEND Family Medicine
DX: Z34.93 Encounter for supervision of normal pregnancy, unspecified, third trimester (principal); Z3A.35 35 weeks gestation of pregnancy
CPT/HCPCS: 81000; 87088; 99213

== ENCOUNTER 2020-11-11 08:22 | Outpatient (CLI) | payer MEDICAID ==
[~2020-11-11] VITALS: Ht 157 cm; Wt 102.2 kg
[2020-11-11 08:40] VITALS: BP 116/67
--- NOTE | 2020-11-11 10:08 | Diagnostic Imaging Report ---
INDICATION: Vaginal bleeding during third trimester TECHNIQUE: Multiple real-time grayscale images were obtained over the gravid uterus. COMPARISON: None FINDINGS: Fetus is in cephalic presentation. The cervix is not well seen but measures approximately 6 cm in length. Placenta is anteriorly positioned but there is no previa with the tip of the cervix being 3.7 cm from the internal cervical os. VERÓNICA is normal at 23 cm. Biometrical measurements are as follows: Biparietal 8.79 cm, age 35 weeks 4 days. Head circumference 32.24 cm, age 36 weeks 3 days. Abdominal circumference 32.93 cm, age 36 weeks 6 days. Femur length 7.19 cm, age 36 weeks 6 days. Sonographic estimate age: 36 weeks 3 days. Sonographic estimated date of delivery: 12/06/2020. Estimated Weight: 2991 gm (+/- 437 gm). LMP percentile: 88%. heart rate: 136 beats per minute. number: 1 of 1. IMPRESSION: 1. Single live intrauterine in cephalic presentation. 2. Cervix measures approximately 6 cm in length. 3. Average ultrasound age on today's examination is within the standard deviation for gestational age by LMP. Dictated by: Dictated on workstation # [id number]
--- NOTE | 2020-11-12 08:05 | Physician Query-Final Dx ---
JF LACY 11/12/20 0805: Clinic Account Progress/Dx Physician Query: Please give diagnosis Please include # weeks gestation Date of Service Nov 11, 2020 at 08:22 RODRIGUEZ CAMEJO MD 11/13/20 0639: Clinic Account Progress/Dx DIAGNOSIS: Diagnosis 1. Vaginal bleed, reassuring 2. IUP at third trimester JF LACY Nov 12, 2020 08:05 RODRIGUEZ CAMEJO MD Nov 13, 2020 06:39
== END 2020-11-11 10:30 | disposition home or self-care (01) ==
LOC: LDRP 08:22 → WSo 08:22
PROVIDERS: ATTEND Family Medicine
DX: O46.93 Antepartum hemorrhage, unspecified, third trimester (principal); Z3A.32 32 weeks gestation of pregnancy
CPT/HCPCS: 76805; G0463; 99213

== ENCOUNTER 2020-11-14 01:22 | Outpatient (CLI) | payer MEDICAID ==
[~2020-11-14] VITALS: Ht 157.5 cm; Wt 103.2 kg
[2020-11-14 01:35] VITALS: BP 102/77
[2020-11-14 01:59] LABS: BILIRUBIN,URINE NEGATIVE (NEGATIVE); GLUCOSE, URINE (UA) NEGATIVE (NEGATIVE); KETONES,URINE NEGATIVE (NEGATIVE); LEUKOCYTE ESTERASE ,URINE NEGATIVE (NEGATIVE); NITRITE,URINE NEGATIVE (NEGATIVE); PH,URINE 6.5 (5-9); PROTEIN,URINE TRACE (NEGATIVE)
[2020-11-14 02:08] LABS: AMORPHOUS SEDIMENT,UR FEW AMOR URATES /LPF; BACTERIA,URINE TRACE /HPF; CLARITY,URINE SL CLOUDY; COLOR,URINE DARK YELLOW; RBC,URINE 25-50 /HPF
[2020-11-14 02:33] VITALS: BP 102/77
[2020-11-14 02:45] VITALS: BP 102/77
--- NOTE | 2020-11-15 08:52 | Physician Query-Final Dx ---
JF LACY 11/15/20 0852: Clinic Account Progress/Dx Physician Query: Please give diagnosis Please include # weeks gestation Date of Service Nov 14, 2020 at 01:22 RODRIGUEZ CAMEJO MD 11/15/20 1806: Clinic Account Progress/Dx DIAGNOSIS: Diagnosis 1. Vaginal bleed-resolved 2. IUP at 35 weeks JF LACY Nov 15, 2020 08:52 RODRIGUEZ CAMEJO MD Nov 15, 2020 18:06
== END 2020-11-14 02:48 | disposition home or self-care (01) ==
LOC: WSo 01:22 → LDRP 01:25 → WSo 02:48
PROVIDERS: ATTEND Family Medicine
DX: O46.93 Antepartum hemorrhage, unspecified, third trimester (principal); Z3A.35 35 weeks gestation of pregnancy
CPT/HCPCS: 81000; G0463; 99213

== ENCOUNTER 2020-12-03 22:19 | Outpatient (CLI) | payer MEDICAID ==
[~2020-12-03] VITALS: Ht 157.5 cm; Wt 102.6 kg
[2020-12-03 22:40] VITALS: BP 104/56
[2020-12-03 22:45] VITALS: BP 104/56
[2020-12-03 22:46] VITALS: BP 104/56
[2020-12-03 22:46] LABS: BILIRUBIN,URINE NEGATIVE (NEGATIVE); CLARITY,URINE SL CLOUDY; COLOR,URINE YELLOW; GLUCOSE, URINE (UA) NEGATIVE (NEGATIVE); KETONES,URINE NEGATIVE (NEGATIVE); LEUKOCYTE ESTERASE ,URINE 2+ (NEGATIVE); NITRITE,URINE POSITIVE (NEGATIVE); PROTEIN,URINE TRACE (NEGATIVE)
[2020-12-03 22:54] LABS: BACTERIA,URINE NEGATIVE /HPF; WBC,URINE >100 /HPF
--- NOTE | 2020-12-04 08:57 | Physician Query-Final Dx ---
Clinic Account Progress/Dx Physician Query: Please give diagnosis Please include # weeks gestation Date of Service Dec 03, 2020 at 22:19 JF LACY Dec 04, 2020 08:57
== END 2020-12-04 00:10 ==
LOC: WSo 22:19 → LDRP 22:19 → WSo 12-04 00:10
PROVIDERS: ATTEND Family Medicine
DX: Z34.93 Encounter for supervision of normal pregnancy, unspecified, third trimester (principal); Z3A.37 37 weeks gestation of pregnancy
CPT/HCPCS: 81000; G0463; 99214

== ENCOUNTER 2020-12-12 06:06 | Inpatient (IN) | payer MEDICAID ==
[2020-12-12] VITALS (47 sets, daily range): BP systolic 96–149; BP diastolic 51–84
[~2020-12-12] VITALS: Ht 157.5 cm; Wt 104.5 kg
[2020-12-12] MEDS ORDERED: D5 LR IV SOLUTION 1,000 ML IV SCH (06:15)
[2020-12-12] MEDS ORDERED: MINERAL OIL CONCENTRATE 99.9% 15 ML UDC TOP PRN (06:15)
[2020-12-12 06:39] LABS: BASOPHILS # (AUTO) 0.1 10^3/uL (0.0-0.1); BASOPHILS % (AUTO) 0 % (0-10); EOSINOPHILS % (AUTO) 0 % (0-10); HEMATOCRIT 37 % (35-52); HEMOGLOBIN 12.2 g/dL (11.5-16.0); LYMPHOCYTES # (AUTO) 2.3 10^3/uL (1.0-4.0); LYMPHOCYTES % (AUTO) 17 % (12-44); MEAN CORPUSCULAR HEMOGLOBIN 28 pg (25-34); MEAN CORPUSCULAR HGB CONC 33 g/dL (32-36); MEAN CORPUSCULAR VOLUME 84 fL (80-99); MEAN PLATELET VOLUME 12.8 fL (9.0-12.2); MONOCYTES # (AUTO) 0.6 10^3/uL (0.0-1.0); MONOCYTES % (AUTO) 5 % (0-12); NEUTROPHILS # (AUTO) 10.5 10^3/uL (1.8-7.8); NEUTROPHILS % (AUTO) 77 % (42-75); PLATELET COUNT 162 10^3/uL (130-400); WHITE BLOOD COUNT 13.6 10^3/uL (4.3-11.0)
[2020-12-12] MEDS ORDERED: OXYTOCIN PRE-MIX DRIP 500 ML IV SCH ×2 (07:00→16:00)
--- NOTE | 2020-12-12 07:01 | History & Physical-OB ---
OB - Chief Complaint & HPI Date/Time Date of Admission: Date of Admission: Dec 12, 2020 at 06:06 Date seen by a Provider: Dec 12, 2020 Time Seen by a Provider: 06:45 Chief Complaint/History OB-Reason for Admission/Chief: Induction of Labor Hx : 2 Hx Para: 1 Expected Date of Delivery: Dec 19, 2020 Gestational Age in Weeks: 39 Admission Nurse Assessment Rev: Yes History of Labs GBS negative Allergies and Home Medications Allergies Coded Allergies: amoxicillin (Unverified Allergy, Mild, RASH, 11/14/20) Penicillins (Verified Allergy, Unknown, unknown, 11/14/20) Home Medications No Active Prescriptions or Reported Meds Patient Home Medication List Home Medication List Reviewed: Yes OB - History Hx of Present Care: Yes Ultrasounds: Normal mid trimester US Obstetrical Complications: None Medical Complications: None Delivery History Hx Blood Disorders: No Patient Past Medical History no chronic medical problems Social History/Family History 2nd Hand Smoke Exposure: No Immunizations Tetanus Booster (TDap): Less than 5yrs OB - Admission Exam Physical Exam Vitals: Vital Signs 12/12/20 06:15 Temp 36.5 Pulse 98 Resp 18 Pulse Ox 98 O2 Delivery Room Air HEENT: Moist Membranes Heart: Rhythm Normal Lungs: Clear Abdomen: Gravid Cervical Dilatation: 2cm Effacement: 75% Station: -3 Membranes: Intact Heart Rate: 140's Accelerations: Accelerations Present Decelerations: No Decelerations Short Term Variability: Present [employer] Variability: Average (6-25) Contractions on Admission: >10 Minutes Apart Intensity: Mild Kathleen Scoring Tool (Modified) Dilation (cm): 1-2cm (1) Effacement (%): 51-79% (2) Descent/Station: -3 (0) Cervix Consistency: Medium(1) Cervix Position: Middle/Mid-Position (1) Add 1 point for: Each previous vaginal delivery (1) Kathleen Score: 6 Labs Laboratory Tests Test 12/12/20 06:30 Range/Units White Blood Count 13.6 H 4.3-11.0 10^3/uL Red Blood Count 4.39 3.80-5.11 10^6/uL Hemoglobin 12.2 11.5-16.0 g/dL Hematocrit 37 35-52 % Mean Corpuscular Volume 84 80-99 fL Mean Corpuscular Hemoglobin 28 25-34 pg Mean Corpuscular Hemoglobin Concent 33 32-36 g/dL Red Cell Distribution Width 14.6 H 10.0-14.5 % Platelet Count 162 130-400 10^3/uL Mean Platelet Volume 12.8 H 9.0-12.2 fL Immature Granulocyte % (Auto) 1 % Neutrophils (%) (Auto) 77 H 42-75 % Lymphocytes (%) (Auto) 17 12-44 % Monocytes (%) (Auto) 5 0-12 % Eosinophils (%) (Auto) 0 0-10 % Basophils (%) (Auto) 0 0-10 % Neutrophils # (Auto) 10.5 H 1.8-7.8 10^3/uL Lymphocytes # (Auto) 2.3 1.0-4.0 10^3/uL Monocytes # (Auto) 0.6 0.0-1.0 10^3/uL Eosinophils # (Auto) 0.0 0.0-0.3 10^3/uL Basophils # (Auto) 0.1 0.0-0.1 10^3/uL Immature Granulocyte # (Auto) 0.2 H 0.0-0.1 10^3/uL OB - Assessment/Plan/Diagnosis Assessment Assessment: induction of labor Admission Dx IUP at term 39 weeks. Admission Status: Inpatient Order (span 2 midnights) Reason for Inpatient Admission: L&D Plan Plan: Induction Induction Method: AROM Other Plan -epidural -pitocin to be started RODRIGUEZ CAMEJO MD Dec 12, 2020 07:01
[2020-12-12] MEDS ORDERED: fentaNYL 2 mcg/ml BUPIVA 0.125 100 ML ONE (09:13)
[2020-12-12] MEDS ORDERED: diphenhydrAMINE 50 MG/ML INJ (BENADRYL) IV PRN (11:00)
[2020-12-12] MEDS ORDERED: LACTATED RINGERS 1,000 ML IV SCH (11:00)
[2020-12-12] MEDS ORDERED: EPIDURAL (fentaNYL 2 MCG/ML BUPIVA 0.125%)100 ML BAG EPI SCH (11:00)
[2020-12-12] MEDS ORDERED: ONDANSETRON 4 MG/2 ML (SDV) Z0FRAN IV PRN (11:00)
[2020-12-12] MEDS ORDERED: NALOXONE 0.4 MG/ML 1 ML (NARCAN) VIAL IV PRN ×2 (11:00)
[2020-12-12] MEDS ORDERED: METOCLOPRAMIDE INJ 10 MG/2 ML (REGLAN) IV PRN (11:00)
[2020-12-12] MEDS ORDERED: MEPIVACAINE (CARBOCAINE) 2% 50 ML VIAL ONE (14:38)
--- NOTE | 2020-12-12 15:55 | OB Labor & Delivery Record ---
L&D History Date of Service Date of Service: Dec 12, 2020 History Expected Date of Delivery: Dec 19, 2020 Gestational Age in Weeks: 39 Hx : 2 Hx Para: 2 Complications Events: Routine care Operative Indications (Cesarea: N/A-Vaginal Delivery Intrapartal Events: None L&D Stage1 Stage One Onset of Labor - Date: Dec 12, 2020 Onset of Labor - Time: 06:47 Monitors and Tracing Monitor Mode: Internal Heart Rate: 135 Monitor Accelerations: Uniform Monitor Decelerations: None Station: -3 Pole Shaver Variability: Average (6-10) Short Term Variability: Present Presentation: Vertex Vital Signs VS - Last 72 Hours, by Label 12/12/20 12/12/20 12/12/20 12/12/20 06:15 07:25 07:49 08:05 Temp 36.5 36.8 Pulse 98 111 98 Resp 18 18 18 B/P (MAP) 149/64 (92) 123/58 (79) Pulse Ox 98 O2 Delivery Room Air Room Air Room Air 12/12/20 12/12/20 12/12/20 12/12/20 08:20 08:29 08:34 08:49 Temp 36.5 36.6 Pulse 103 101 99 Resp 18 18 18 B/P (MAP) 121/56 (77) 114/67 (83) 132/68 (89) O2 Delivery Room Air Room Air Room Air 12/12/20 12/12/20 12/12/20 12/12/20 09:03 09:20 09:30 09:32 Pulse 107 94 105 110 Resp 18 18 18 18 B/P (MAP) 123/59 (80) 121/76 (91) 114/68 (83) 119/72 (88) Pulse Ox 100 O2 Delivery Room Air Room Air Room Air Room Air 12/12/20 12/12/20 12/12/20 12/12/20 09:35 09:38 09:41 09:44 Pulse 110 96 102 100 Resp 18 18 18 18 B/P (MAP) 124/78 (93) 110/68 (82) 113/67 (82) 111/66 (81) Pulse Ox 99 98 98 98 O2 Delivery Room Air Room Air Room Air Room Air 12/12/20 12/12/20 12/12/20 12/12/20 09:47 09:51 09:54 10:00 Temp 36.0 Pulse 113 100 104 97 Resp 18 18 18 18 B/P (MAP) 116/67 (83) 129/63 (85) 116/57 (76) 119/57 (77) Pulse Ox 98 98 97 98 O2 Delivery Room Air Room Air Room Air Room Air 12/12/20 12/12/20 12/12/20 12/12/20 10:13 10:29 10:44 10:54 Pulse 90 90 115 105 Resp 18 18 18 18 B/P (MAP) 110/57 (74) 111/71 (84) 127/71 (89) 125/66 (85) Pulse Ox 98 O2 Delivery Room Air Room Air Room Air Room Air 12/12/20 12/12/20 12/12/20 12/12/20 10:59 11:04 11:05 11:20 Temp 36.5 Pulse 96 96 96 Resp 18 18 18 B/P (MAP) 127/66 (86) 123/74 (90) 129/76 (93) Pulse Ox 97 97 O2 Delivery Room Air Room Air Room Air 12/12/20 12/12/20 12/12/20 12/12/20 11:35 11:51 12:06 12:20 Pulse 99 87 83 90 Resp 18 18 18 18 B/P (MAP) 127/65 (85) 100/56 (71) 103/55 (71) 99/55 (70) Pulse Ox 96 97 96 98 O2 Delivery Room Air Room Air Room Air Room Air 12/12/20 12/12/20 12/12/20 12/12/20 12:36 12:48 12:51 13:07 Temp 36.3 Pulse 73 95 87 Resp 18 18 18 B/P (MAP) 96/51 (66) 109/62 (78) 138/60 (86) Pulse Ox 98 98 98 O2 Delivery Room Air Room Air Room Air 12/12/20 12/12/20 12/12/20 12/12/20 13:22 13:36 13:51 13:57 Temp 36.4 Pulse 86 90 95 Resp 18 18 18 B/P (MAP) 115/62 (79) 118/70 (86) 117/69 (85) Pulse Ox 99 97 99 O2 Delivery Room Air Room Air Room Air Signs of Distress by FHT Signs of Distress no Rupture of Membranes Spontaneous Ruture of Membrane: No Amniotic Membrane Rupture Time: 0647 Amniotic Membrane Fluid Desc.: Clear Induction/Anesthesia Epidural Cath Placement - Time: 0939 L&D Stage2 Stage Two Stage II Date: Dec 12, 2020 Stage II Time: 15:00 Monitors and Tracing Monitor Mode: Internal Heart Rate: 135 Monitor Accelerations: Uniform Monitor Decelerations: None Usp Variability: Average (6-10) Short Term Variability: Present Position: Left Occiput Anterior Presentation: Vertex Signs of Distress by FHT Signs of Distress no Cord Descript/Complications Cord Vessel Description: 3 Vessels Delivery Type Delivery Method: Spontaneous Vaginal Anterior Shoulder: Left Episiotomy/Perineal Laceration Laceraction(s)/Extensions: No Episiotomy Description: Periurethral Extnsion/lac (L) Condition of Delivery 1 minute Comment: 8 5 minute Comment: 9 Condition of Condition of Infant: Living Exam: No Observed Abnormalities Resuscitation Resuscitation: N/A - Spontaneous Resp L&D Stage3 Stage Three Stage III Date: Dec 12, 2020 Stage III Time: 15:08 Pictocin Pitocin Administration mu/min: 18 Pitocin ml/hr: 18 Pitocin Administration Comment: 1243 PITOCIN INCREASED PER PROTOCOL. Placenta Delivery Placenta Delivery: Spontaneous Delivery Summary Summary Estimated blood loss (mL): 200 Condition of Delivery Examined: Cervix Examined Post Hemorrhage: No Intervention Required none RODRIGUEZ CAMEJO MD Dec 12, 2020 15:55
[2020-12-12] MEDS ORDERED: TETANUS,DIPTH,PERTUSS P/F (BOOSTRIX) 0.5 ML VIAL IM ONE (16:00)
[2020-12-12] MEDS ORDERED: WITCH HAZEL(TUCKS) 40 EA JAR TOP PRN (16:00)
[2020-12-12] MEDS ORDERED: MEASLES,MUMPS,RUBELLA 1 EA INJ SQ ONE (16:00)
[2020-12-12] MEDS ORDERED: BENZOCAINE/MENTHOL (DERMOPLAST) 60 ML CAN TP PRN (16:00)
[2020-12-12] MEDS: IBUPROFEN 600 MG (MOTRIN) TAB PO SCH (19:00)
[2020-12-12] MEDS: ACETAMINOPHEN 500 MG TAB (TYLENOL) PO SCH (19:55)
[2020-12-12] MEDS: DOCUSATE SODIUM 100 MG (COLACE) CAP PO SCH (19:56)
[2020-12-12] MEDS ORDERED: CATHETER FLUSH 10 ML SYR IV SCH (22:00)
[2020-12-13] VITALS: BP 130/69
[2020-12-13] MEDS: IBUPROFEN 600 MG (MOTRIN) TAB PO SCH ×3 (00:29→11:36)
[2020-12-13] MEDS: ACETAMINOPHEN 500 MG TAB (TYLENOL) PO SCH ×3 (02:34→15:17)
[2020-12-13 05:40] LABS: BASOPHILS # (AUTO) 0.1 10^3/uL (0.0-0.1); BASOPHILS % (AUTO) 0 % (0-10); EOSINOPHILS % (AUTO) 0 % (0-10); MEAN CORPUSCULAR VOLUME 86 fL (80-99); MEAN PLATELET VOLUME 13.1 fL (9.0-12.2)
[2020-12-13 05:42] LABS: HEMATOCRIT 34 % (35-52); LYMPHOCYTES # (AUTO) 2.5 10^3/uL (1.0-4.0); LYMPHOCYTES % (AUTO) 14 % (12-44); MEAN CORPUSCULAR HEMOGLOBIN 28 pg (25-34); MEAN CORPUSCULAR HGB CONC 32 g/dL (32-36); MONOCYTES # (AUTO) 1.1 10^3/uL (0.0-1.0); MONOCYTES % (AUTO) 6 % (0-12); NEUTROPHILS # (AUTO) 13.4 10^3/uL (1.8-7.8); NEUTROPHILS % (AUTO) 78 % (42-75); PLATELET COUNT 115 10^3/uL (130-400); WHITE BLOOD COUNT 17.1 10^3/uL (4.3-11.0)
[2020-12-13 05:46] LABS: LYMPHOCYTES % (MANUAL) 15 %; MONOCYTES % (MANUAL) 10 %; NEUTROPHILS % (MANUAL) 75 %; RBC MORPH NORMAL
[2020-12-13 06:05] VITALS: BP 119/77
[2020-12-13 07:53] VITALS: BP 126/60
[2020-12-13] MEDS: DOCUSATE SODIUM 100 MG (COLACE) CAP PO SCH (07:55)
--- NOTE | 2020-12-13 10:42 | Anesthesia-Regional Post-Op ---
Regional Patient Condition Mental Status: Alert, Oriented x3 Circulation: Same as Pre-Op Headache: Absent Sensation: Full Recovery Motor Block: Absent Post Op Complications Complications None Follow Up Care/Instructions Patient Instructions None needed. Anesthesia/Patient Condition Patient is doing well, no complaints, stable vital signs, no apparent adverse anesthesia problems. No complications reported per nursing. LENA THOMAS CRNA Dec 13, 2020 10:42
[2020-12-13 11:40] VITALS: BP 116/74
--- NOTE | 2020-12-13 14:35 | Discharge Summary ---
Diagnosis/Chief Complaint Date of Admission Dec 12, 2020 at 06:06 Date of Discharge Discharge Date: Dec 13, 2020 Discharge Time: 17:00 Admission Diagnosis Admission Diagnosis 1. IUP at term 39 weeks. Discharge Diagnosis 1. IUP at term 39 weeks. Reason Hospital Visit 20 yo [id number] who presented for induction of labor yesterday at 39 weeks gestation. She was noted to be GBS negative at 36 week check. Discharge Summary-OBS Procedures 1. Epidural per anesthesia 2. Discharge Physical Examination Allergies: Coded Allergies: amoxicillin (Unverified Allergy, Mild, RASH, 11/14/20) Penicillins (Verified Allergy, Unknown, unknown, 11/14/20) Vitals & I&Os Vital Signs Date Time Temp Pulse Resp B/P (MAP) Pulse Ox O2 Delivery O2 Flow Rate FiO2 12/13/20 11:40 36.6 80 18 116/74 (88) 98 Room Air General Appearance: No Acute Distress Respiratory: Clear to Auscultation Cardiovascular: Regular Rate Abdominal: Soft (with uterus firm) Hospital Course Was the Problem List Reviewed?: Yes Hg was noted to be 11.0 the day after delivery and this was compared to admission hg of 12.2. Discharge Instructions to patient/family Please see electronic discharge instructions given to patient. Discharge Medications Reviewed and agree with Discharge Medication list on patient's Discharge Instruction sheet RODRIGUEZ CAMEJO MD Dec 13, 2020 14:35
--- NOTE | 2020-12-13 14:37 | Discharge Inst-Women's Service ---
Discharge Inst-Women's Serv Depart Medication/Instructions New, Converted or Re-Newed RX: Transmitted to Pharmacy ([facility]) Problems Reviewed?: Yes Consults/Follow Up Additional Follow Up: Yes (Dr Camejo in 6 weeks.) Activity Activity: Activity as Tolerated Driving Instructions: No Driving for 1 Week Nothing Inside Vagina: No [place] (for 6 weeks.) Diet Discharge Diet: Regular Diet Return to The Hospital For: as below Symptoms to Report to : Bleeding Excessive, Fever Over 101 Degrees F, Vaginal Discharge Foul For Any Problems or Questions: Contact Your Physician RODRIGUEZ CAMEJO MD Dec 13, 2020 14:37
[2020-12-13] MEDS ORDERED: IBUP-844 PO (14:38)
== END 2020-12-13 17:00 | disposition home or self-care (01) | DRG 807 ==
LOC: LDRP 06:06
PROVIDERS: ADMIT Family Medicine; ATTEND Family Medicine
PROC: 10E0XZZ Delivery of Products of Conception, External Approach (ICD-10-PCS; principal; 2020-12-12)
PROC: 10907ZC Drainage of Amniotic Fluid, Therapeutic from Products of Conception, Via Natural or Artificial Opening (ICD-10-PCS; 2020-12-12)
DX: O71.82 Other specified trauma to perineum and vulva (principal); Z37.0 Single live birth; Z3A.39 39 weeks gestation of pregnancy; Z23 Encounter for immunization; Z88.1 Allergy status to other antibiotic agents; Z88.0 Allergy status to penicillin
CPT/HCPCS: 36415; 85007; 85025; 85027; 86850; 86900; 86901; 90715